=== PATIENT | female | born 1935 | race Caucasian/White ===

== ENCOUNTER 2016-11-22 20:54 | Inpatient (IN) | payer MEDICARE, BC ==
[~2016-11-22] VITALS: Ht 167.6 cm; Wt 49.9 kg
--- NOTE | ~2016-11-22 | DS ---
PATIENT:LEONORA MONTERO :33 MEDICAL RECORD: [id number] DISCHARGE SUMMARY ADMISSION DATE: 11/22/16 DISCHARGE DATE: 11/25/16 ADMITTING DIAGNOSIS: Left hip femoral neck fracture. DISCHARGE DIAGNOSIS: Left hip femoral neck fracture. PROCEDURE PERFORMED: Left hip hemiarthroplasty plus postoperative acute blood loss anemia. HISTORY OF PRESENT ILLNESS: This is an 81-year-old female that fell, had a femoral neck fracture. She presented to the hospital with this. She underwent a hip hemiarthroplasty. She did well with the procedure. It was felt by the , she could be transferred to [facility]. She was continued on anticoagulation therapy, continue on ambulation walker training with her hip fracture, pain medications and the plan to see me back in the office in about 2 weeks. TRANSINT:[id number] Voice Confirmation ID: [id number] DOCUMENT ID: [id number] ALVAREZ BRAMBILA MD CC: [id number] DICTATION DATE: 12/28/16917 INDUSTRIAL ILLUMINATING ENGINEER: 12/28/16 1109 DIS IN 11/25/16 [address] [place] [address]
[2016-11-22 22:18] LABS: BASOPHILS 0.5 % (0.0-2.0); EOSINOPHILS 1.8 % (0-7); HEMATOCRIT 36.7 % (36.0-48.0); HEMOGLOBIN 12.3 g/dL (12-16); IMMATURE GRANULOCYTES 0.2 % (0-5); LYMPHOCYTES 30.2 % (15-50); MCHC 33.5 g/dL (31.0-37.0); MCV 92.4 fL (80.0-100.0); MEAN PLATELET VOLUME 9.8 fL (7.4-10.4); MONOCYTES 8.3 % (2-11); PLATELET COUNT 215 10x3/uL (130-400); RBC 3.97 10x6/uL (4.00-5.40); RDW 13.2 % (11.5-14.5)
[2016-11-22 22:29] LABS: APTT 28.1 SECONDS (22.8-39.4); INR 1.01 (0.85-1.17); PROTIME 13.2 SECONDS (11.6-15.0)
[2016-11-22 22:44] LABS: ALBUMIN 3.6 g/dL (3.4-5.0); ANION GAP 15.5 mmol/L (8-16); BILIRUBIN - TOTAL 0.47 mg/dL (0.2-1.3); CALCIUM 8.5 mg/dL (8.5-10.1); CARBON DIOXIDE 24.1 mmol/L (21.0-32.0); CREATININE - SERUM 0.9 mg/dL (0.6-1.3); POTASSIUM - SERUM 3.6 mmol/L (3.5-5.1); PROTEIN - SERUM 6.8 g/dL (6.4-8.2)
[2016-11-23] VITALS (12 sets, daily range): BP systolic 98–134; BP diastolic 44–58; Ht 167.6 cm; Wt 49.9 kg
--- NOTE | 2016-11-23 00:41 | NUR ---
REC'D FROM ER DEPT TO ROOM 2228 PER STRETCHER AN 81 Y/O W/FE PER SERVICES DR. BRAMBILA WITH FX LEFT FEMUR NKDA. PT'S BEST FRIEND AT BEDSIDE. IV SALINE LOCK PATENT LEFT AC SITE CLEAR. FRANCISCO TO BEDSIDE DRAINAGE WITH YELLOW URINE. PT WEARS BILAT. HEARING AIDES. O2 ON 2L/M PER NC. PT IS NPO. TIL SEEN BY DR. BRAMBILA.
[2016-11-23] MEDS ORDERED: BAYER CHEWABLE81 MG PO (00:43)
[2016-11-23] MEDS ORDERED: LIPITOR10 MG (00:49)
[2016-11-23] MEDS ORDERED: ANTIVERT12.5 MG PO (00:50)
--- NOTE | 2016-11-23 02:00 | NUR ---
EYES CLOSED RESPIRATIONS WITH EASE AND UNLABORED.
--- NOTE | 2016-11-23 04:15 | NUR ---
REMAINS NPO RESTING QUIETLY BODY IN GOOD ALIGNMENT. EYES CLOSED RESPIRATIONS WITH EASE AND UNLABORED.BED ALARM BED ACTIVATED. SR UP X2 CALL LIGHT WITHIN REACH.
--- NOTE | 2016-11-23 05:01 | NUR ---
C/O PAIN LEFT HIP FX AREA. RATES PAIN LEVEL 6. MORPHINE 2MG IVP GIVEN FOR PAIN CONTROL.
[2016-11-23] MEDS ORDERED: LIPITOR20 MG PO (06:06)
[2016-11-23] MEDS ORDERED: EXFORGE 5-320 M1 TAB PO (06:07)
--- NOTE | 2016-11-23 07:30 | NUR ---
RESTING QUIETLY REMAINS NPO.
[2016-11-23 07:52] LABS: BASOPHILS 0.1 % (0.0-2.0); EOSINOPHILS 0.1 % (0-7); HEMATOCRIT 39.4 % (36.0-48.0); HEMOGLOBIN 13.3 g/dL (12-16); IMMATURE GRANULOCYTES 0.1 % (0-5); LYMPHOCYTES 17.5 % (15-50); MCHC 33.8 g/dL (31.0-37.0); MCV 91.8 fL (80.0-100.0); MEAN PLATELET VOLUME 9.8 fL (7.4-10.4); NEUTROPHILS 73.2 % (40-80); PLATELET COUNT 227 10x3/uL (130-400); RBC 4.29 10x6/uL (4.00-5.40); RDW 13.2 % (11.5-14.5); WBC 7.2 10x3/uL (4.8-10.8)
[2016-11-23 08:19] LABS: CALC OSMOLALITY 260 mosm/kg (275-300); CALCIUM 8.8 mg/dL (8.5-10.1); CARBON DIOXIDE 27.3 mmol/L (21.0-32.0); CHLORIDE - SERUM 96 mmol/L (98-107); CREATININE - SERUM 0.7 mg/dL (0.6-1.3); GLUCOSE 106 mg/dL (74-106); POTASSIUM - SERUM 4.1 mmol/L (3.5-5.1); SODIUM 131 mmol/L (136-145); UREA NITROGEN 8 mg/dL (7-18); eGFR NON AFRICAN AMERICAN 85 mL/min (90-120)
[2016-11-23 09:00] LABS: INR 0.9 (0.85-1.17)
--- NOTE | 2016-11-23 09:26 | NUR ---
AT SIDE.PT RESTING WITHOUT DISTRESS.NPO FOR POSS SURGERY TODAY.CALL LIGHT IN REACH
[2016-11-23 12:57] LABS: APPEARANCE CLEAR (CLEAR); BILIRUBIN NEGATIVE (NEGATIVE); COLOR STRAW (YELLOW); GLUCOSE NEGATIVE (NEGATIVE); KETONE NEGATIVE (NEGATIVE); LEUKOCYTE ESTERASE NEGATIVE (NEGATIVE); NITRITE NEGATIVE (NEGATIVE); PROTEIN NEGATIVE (NEGATIVE); SPECIFIC GRAVITY 1.005 (1.005-1.020); UROBILINOGEN NORMAL (NORMAL)
[2016-11-23 13:00] LABS: BACTERIA FEW /hpf (NONE SEEN); EPITHELIAL CELLS OCC /hpf (0-5); RED CELLS - URINE OCC /hpf (0-5); WHITE CELLS - URINE OCC /hpf (0-5)
--- NOTE | 2016-11-23 16:27 | NUR ---
Patient Name: LEONORA MONTERO Admission Status: ER Accout number: [id number] Admission Date: 11-22-2016 : 1935 Admission Diagnosis:FRACTURE OF UNSP PART OF NECK OF LEFT FEMUR, INIT Attending: ASHLEY Current LOS: 1 Anticipated DC Date: 11-25-2016 Planned Disposition: [facility] Primary Insurance: MEDICARE A & B Discharge Planning Comments: CM MET WITH PATIENT AND HER BEST FRIEND (DAVY DAY) WHOM SHE IS MOVING IN WITH AT DISCHARGE. PATIENT IS FROM [place] AND WAS IN THE PROCESS OF MOVING. THERE ARE 2 STEPS WITH GRAB BARS TO ENTER HOME AND NO STAIRS INSIDE. PATIENT WAS INDEPENDENT WITH HER CARE AND HAS NO DME. PATIENTS PCP IS DR. PYLE AT [place] AND PHARMACY IS [facility]. PATIENT HAS NEVER HAD HOME HEALTH AND IS REQUESTING [facility] AT DISCHARGE AND SIGNED THE [facility]ACE[facility] FORM. CM WILL CONTINUE TO FOLLOW PATIENT WITH D/C NEEDS AND PLANS. PCP DR. PYLE [facility] [phone] DAVY DAY (BEST FRIEND) [phone] OR [phone] Australian Rules Footballer: Idania Willian Is the patient Alert and Oriented? Yes 0 * How many steps to enter\exit or inside your home? 2 W/BARS 0 * PCP DR. PYLE IN [place] 0 * Pharmacy [facility] 0 * Preadmission Environment Home Alone 0 * ADLs Independent 0 * Equipment None 0 * List name and contact numbers for known caregivers / representatives who currently or will assist patient after discharge: DAVY DAY [phone] OR [phone] * Community resources currently utilized None 0 * Additional services required to return to the preadmission environment? Yes 0 * Can the patient safely return to the preadmission environment? Yes 0 * Has this patient been hospitalized within the prior 30 days at any hospital? No 0 Grand Total: 0
--- NOTE | 2016-11-23 19:00 | NUR ---
PATIENT SLEEPING SUPINE IN BED. HOB 30 DEGREES. RR EVEN AND UNLABORED. O2 HAS BEEN AT 2L BUT PATIENT SATS 99%. O2 TURNED OFF. 0 S/S OF DISTRESS. IV TO LEFT FA PATENT WITH NO REDNESS OR SWELLING. DRESSING TO LEFT HIP CDI. FRANCISCO SECURED WITH STATLOCK AND DRAINING TO GRAVITY. B/A ON. FRIEND AT BEDSIDE. SRX2. BED LOW. CALL LIGHT WITHIN REACH.
--- NOTE | 2016-11-23 19:03 | NUR ---
FRIENDS AT BEDSIDE, RESTING, AROUSES EASILY, DENIES NEEDS, ASSESSMENT COMPLETE, PRE-OP ORDERS IN AND GIVEN, CONSENTS SIGNED, CALL LIGHT IN REACH, BED LOWEST POSITION
--- NOTE | 2016-11-23 21:00 | NUR ---
ASSESSMENT COMPLETE. NIGHTTIME MEDS GIVEN. PATIENT DENIES PAIN OR NEEDS AT THIS TIME.
--- NOTE | 2016-11-23 23:00 | NUR ---
PATIENT STATES THAT SHE NEEDS TO HAVE A BM. PUT PATIENT ON BEDPAN BUT PATIENT UNABLE. PATIENT STATES SHE IS EXPERIENCING SOME PAIN FROM THE MOVEMENT. INSTRUCTED PATIENT TO USE PAIN BUTTON.
[2016-11-24] VITALS: BP 96/52
[2016-11-24 04:00] VITALS: BP 102/50
--- NOTE | 2016-11-24 04:00 | NUR ---
PATIENT SLEEPING WITH NO DISTRESS NOTED. CALL LIGHT WITHIN REACH.
[2016-11-24 05:20] LABS: HEMATOCRIT 31.9 % (36.0-48.0); MCH 30.8 pg (26.0-34.0); MCHC 32.9 g/dL (31.0-37.0); MCV 93.5 fL (80.0-100.0); MEAN PLATELET VOLUME 10.1 fL (7.4-10.4); RDW 13.5 % (11.5-14.5); WBC 7.6 10x3/uL (4.8-10.8)
[2016-11-24 05:28] LABS: HEMOGLOBIN 10.5 g/dL (12-16); RBC 3.41 10x6/uL (4.00-5.40)
--- NOTE | 2016-11-24 07:35 | NUR ---
SLEEPING, EASILY AROUSED, DENIES NEEDS, VERY LITTLE PAIN, CALL LIGHT IN REACH, BED LOWEST POSITION, WILL CONTINUE TO MONITOR
[2016-11-24 08:05] VITALS: BP 117/54
--- NOTE | 2016-11-24 08:29 | NUR ---
PT AOX4 RESP EVEN AND NONLABORED PT DENIES NEEDS AT THIS TIME BED AT LOWEST SETTING CALL LIGHT WITHIN REACH WILL CONTINUE TO MONITOR
--- NOTE | 2016-11-24 10:01 | NUR ---
Rehab Prescreening Consult recieved and the chart has been reviewed. She is a good IRF candidate but has not had any therapy yet. She is POD 1. Rehab will follow her progress with PT and plan for admission on POD 3 if she is able and willing to participate in 3 hrs of therapy daily 5 days a week. Nova Gotti RN Clinical Liaison, Rehab
[2016-11-24 12:28] VITALS: BP 103/53
[2016-11-24 15:46] VITALS: BP 107/50
--- NOTE | 2016-11-24 18:46 | NUR ---
IV PULLED OUT BY PT, TIP INTACT, RESITED ON THE LEFT FOREARM
--- NOTE | 2016-11-24 19:00 | NUR ---
PATIENT SUPINE IN BED WATCHING TV. HOB 30 DEGREES. AAOX4. RR EVEN AND UNLABORED. 0 S/S OF DISTRESS. DENIES PAIN AT THIS TIME. IV TO LEFT FA PATENT WITH NO REDNESS OR SWELLING. DRESSING TO LEFT HIP CDI. FRANCISCO SECURED WITH STATLOCK AND DRAINING TO GRAVITY. B/A ON. FRIEND AT BEDSIDE. SRX2. BED LOW. CALL LIGHT WITHIN REACH.
[2016-11-24 20:00] VITALS: BP 108/52
--- NOTE | 2016-11-24 22:45 | NUR ---
ASSESSMENT COMPLETE. NIGHTTIME MEDS GIVEN. INSTRUCTED USE OF IS AND HAD PATIENT DEMONSTRATE. NO OTHER NEEDS AT THIS TIME.
[2016-11-25] VITALS: BP 111/50
--- NOTE | 2016-11-25 03:49 | NUR ---
PATIENT SLEEPING WITH NO DISTRESS NOTED. CALL LIGHT WITHIN REACH.
[2016-11-25 04:00] VITALS: BP 135/63
[2016-11-25 06:15] LABS: HEMATOCRIT 31.3 % (36.0-48.0); HEMOGLOBIN 10.4 g/dL (12-16); MCHC 33.2 g/dL (31.0-37.0); MCV 93.2 fL (80.0-100.0); MEAN PLATELET VOLUME 10.2 fL (7.4-10.4); RBC 3.36 10x6/uL (4.00-5.40); RDW 13.4 % (11.5-14.5); WBC 9.3 10x3/uL (4.8-10.8)
[2016-11-25] MEDS ORDERED: ASPIRIN325 MG PO (07:59)
[2016-11-25] MEDS ORDERED: PERCOCET 5-3251 TAB PO (08:00)
[2016-11-25 08:20] VITALS: BP 117/50
--- NOTE | 2016-11-25 08:32 | NUR ---
CM REASSESSMENT NOTE: PATIENT IS DISCHARGING TO [facility] TODAY BY FACILITY VAN TO A SKILLED BED.
--- NOTE | 2016-11-25 09:00 | NUR ---
POST FORM REMOVER D/C FRANCISCO CATHETER WITH INSTRUCTOR.
--- NOTE | 2016-11-25 09:35 | NUR ---
D/C IV WITH CATH INTACT. CHANGED DRESSING TO LEFT HIP. CLEANED WITH STERILE WOUND REGISTERED MEDICAL TRANSCRIPTIONIST. APPLIED A NEW AQUACEL DRESSING. PATIENT TOLERATED WELL. BRI INTACT. NO REDNESS AT THE SITE.
--- NOTE | 2016-11-25 10:00 | NUR ---
DISCHARGE INSTRUCTIONS COMPLETED WITH PATIENT.
--- NOTE | 2016-11-25 10:10 | NUR ---
PATIENT LEFT VIA WHEELCHAIR WITH STAFF MEMBER FROM [facility].
--- NOTE | 2016-11-25 10:16 | NUR ---
CALLED REPORT TO POLLO BULLOCK AT [facility].
--- NOTE | 2016-11-25 10:46 | NUR ---
Called the JULIÁN Ordoñez to tell her this patient had been accepted to the acute inpatient rehab and was told she had discharged to [facility] skilled facility today. Nova Gotti RN Clinical Liaison, Rehab
--- NOTE | 2016-12-07 10:28 | DS ---
PATIENT:LEONORA MONTERO :33 MEDICAL RECORD: [id number] DISCHARGE SUMMARY ADMISSION DATE: 11/22/16 DISCHARGE DATE: 11/25/16 DATE OF ADMISSION: 11/22/2016 DATE OF DISCHARGE: 11/25/2016 ADMITTING DIAGNOSIS: Left hip femoral neck fracture. DISCHARGE DIAGNOSIS: Left hip femoral neck fracture. PROCEDURE PERFORMED: Left hip hemiarthroplasty. HISTORY OF PRESENT ILLNESS: This is an 81-year-old female, who was visiting friends ____, had a hip fracture, femoral neck fracture. She underwent a hip hemiarthroplasty. She overall did very well with this. It was felt by the 3rd day she could be discharged to place to continue with her postop care, continuing post-hip fracture placement protocols, anticoagulation therapy and pain meds. She is to continue with a walker, see me back in the office in about 2 weeks. TRANSINT:[id number] Voice Confirmation ID: [id number] DOCUMENT ID: [id number] ALVAREZ BRAMBILA MD at 1028 CC: [id number] DICTATION DATE: 11/30/16 1501 NARCOTICS AND/OR VICE DETECTIVE: 11/30/16 2154 DIS IN 11/25/16 [id number] [place] [address]
== END 2016-11-25 10:16 | DRG 470 ==
LOC: D.ER 20:54 → D.MS 22:58
PROVIDERS: Nurse Practitioner Acute Care; ADMIT Orthopaedic Surgery Sports Medicine
PROC: 0SRU0JZ Replacement of Left Knee Joint, Femoral Surface with Synthetic Substitute, Open Approach (ICD-10-PCS; principal; 2016-11-23 12:45)
DX: S72.002A Fracture of unspecified part of neck of left femur, initial encounter for closed fracture (principal); Z68.1 Body mass index [BMI] 19.9 or less, adult; W01.0XXA Fall on same level from slipping, tripping and stumbling without subsequent striking against object, initial encounter; I25.10 Atherosclerotic heart disease of native coronary artery without angina pectoris; R63.6 Underweight